=== PATIENT | female | born 1975 | race Caucasian/White ===

== ENCOUNTER 2024-02-17 11:07 | Day surgery (SDC) | payer MEDICAID ==
[~2024-02-17] VITALS: Ht 157.5 cm; Wt 67.6 kg
[2024-02-17 09:24] LABS: HCG,QUAL RESULT NEGATIVE (NEGATIVE)
[~2024-02-17 11:07] MED LIST: MEPERIDINE 100 MG INJ. 100 MG/ML VIAL ONE; MIDAZOLAM HCL 5 MG/5 ML VIAL ONE
[2024-02-17 12:13] VITALS: BP_SYST 126; PULSE 80; RESP 16; TEMP 97; O2SAT 100
== END 2024-02-17 11:25 | disposition home or self-care (01) ==
LOC: SMU 11:07 → SDS 11:07
PROVIDERS: ATTEND Internal Medicine
DX: K62.5 Hemorrhage of anus and rectum (principal); D12.2 Benign neoplasm of ascending colon; K64.8 Other hemorrhoids; E78.5 Hyperlipidemia, unspecified; Z79.899 Other long term (current) drug therapy
CPT/HCPCS: 45390; 99152; 84703; 88305; 99153; G0378; J2250; J2175; C1889; 45381; 45382; 45384